=== PATIENT | female | born 1990 | race Two or more races ===

== ENCOUNTER 2018-03-13 13:23 | Emergency (ER) | payer MEDICAID ==
[~2018-03-13] VITALS: Ht 157.5 cm; Wt 53.1 kg
[2018-03-13 13:52] VITALS: BP 117/74
[2018-03-13 14:00] LABS: Basophils # (auto) 0 uL; Basophils % (auto) 0.3 % (0.0-2.0); Eosinophils # (auto) 0.1 uL; Eosinophils % (auto) 0.9 % (0.0-7.0); Hematocrit 41.4 % (36.0-46.0); Lymphocytes # (auto) 2.5 uL; Lymphocytes % (auto) 29.2 % (10.0-50.0); Mean Corpuscular Volume 85.4 fL (80.0-100.0); Monocytes # (auto) 0.6 uL; Monocytes % (auto) 6.4 % (0.0-12.0); Neutrophils # (auto) 5.4 uL; Neutrophils % (auto) 63.2 % (37.0-80.0); Nucleated Red Blood Cells % 0.1 %; Platelet Count (auto) 275 10^3/uL (140-450); Red Blood Cells 4.84 10^6/uL (4.0-5.20); Red Cell Distribution Width 13.2 % (11.8-14.3); White Blood Cell 8.6 10^3/uL (4.4-10.8)
[2018-03-13 14:28] LABS: Urine Bacteria FEW /hpf (None Seen); Urine Blood 2+ /uL (Negative); Urine Specific Gravity 1.002 (1.001-1.035); Urine WBC 12 /hpf (0 - 5)
[2018-03-13 14:43] LABS: Albumin 4.1 g/dL (3.4-5.0); BUN/Creatinine Ratio 10.8; Calcium 8.5 mg/dL (8.5-10.1); Potassium 3.2 mmol/L (3.5-5.1)
[2018-03-13 14:45] LABS: Total Protein 7.6 g/dL (6.4-8.2)
== END 2018-03-13 15:52 | disposition home or self-care (01) ==
LOC: ER 13:23
DX: O20.0 Threatened abortion (principal); O23.41 Unspecified infection of urinary tract in pregnancy, first trimester; Z3A.01 Less than 8 weeks gestation of pregnancy
CPT/HCPCS: 36415; 76801; 76817; 80053; 81001; 84702; 85025

== ENCOUNTER 2018-03-15 11:37 | Emergency (ER) | payer MEDICAID ==
[~2018-03-15] VITALS: Ht 157.5 cm; Wt 53.1 kg
[2018-03-15 13:49] VITALS: BP 120/70
== END 2018-03-15 13:52 | disposition home or self-care (01) ==
LOC: ER 11:37
DX: O20.0 Threatened abortion (principal); Z3A.00 Weeks of gestation of pregnancy not specified
CPT/HCPCS: 36415; 84702